=== PATIENT | male | born 1980 | race Caucasian/White ===

== ENCOUNTER 2016-06-10 13:02 | Emergency (ER) | payer SELFPAY | END 2016-06-10 16:05 | LOC: D.ER 13:02 | DX: S01.91XA Laceration without foreign body of unspecified part of head, initial encounter (principal); W25.XXXA Contact with sharp glass, initial encounter; Y93.89 Activity, other specified; Y92.89 Other specified places as the place of occurrence of the external cause; F17.200 Nicotine dependence, unspecified, uncomplicated ==